=== PATIENT | female | born 1985 | race Caucasian/White ===

== ENCOUNTER 2017-02-15 08:54 | Emergency (ER) | payer OTHER ==
[2017-02-15 09:23] VITALS: BP 144/77
[2017-02-15 10:22] LABS: CHLORIDE,CL 105 mmol/L (98-107); SODIUM,NA 140 mmol/L (136-145)
--- NOTE | 2017-02-17 10:03 | ER ---
Date of Service: 02/15/2017 SUBJECTIVE: Gala presents to emergency room with numerous complaints. The patient states that she is experiencing nausea, states that she feels fatigued and weak, states that she often has a mild headache. She states that she is also experiencing severe fatigue. The patient is currently taking methylphenidate 40 mg daily, Prozac 40 mg daily, Klonopin 0.5 mg p.o. b.i.d. p.r.n. and omeprazole 40 mg daily. Her Prozac was increased from 20 mg daily to 40 mg daily as she was seeing some improvement on the Prozac. She previously has been on numerous medications including Lexapro but has also been on fluoxetine, duloxetine, Abilify, Wellbutrin, Latuda, and BuSpar over the past 6 months. She states that she is under the care of Jesse Kennedy who is a psychiatrist at [facility] in [place]. The patient states that she stopped taking the medications for various reasons including increased fatigue, agitation, and tremor and states that she is experiencing severe depression because she has not tolerated any of her antidepressants other than the Prozac that she is on at this time. The patient states that she has not been experiencing any fever or chills or other worrisome signs or symptoms. PAST MEDICAL HISTORY: 1. Depression. 2. Anxiety. 3. GERD. MEDICATIONS: 1. Methylphenidate 40 mg daily. 2. Prozac 40 mg daily. 3. Klonopin 0.5 mg p.o. b.i.d. p.r.n. 4. Omeprazole 40 mg daily. ALLERGIES: NKDA. REVIEW OF SYSTEMS: Please see history of present illness. Denies any chest pain or shortness of breath. Again, complains of nausea, fatigue, weakness, headache. PHYSICAL EXAMINATION: General: This is a 32-year-old female, in no acute distress. Vital Signs: Blood pressure is 144/77, pulse rate is 83, temperature is 36.3, respiratory rate 16. Skin: Warm, pink, and dry. HEENT. Head is normocephalic, atraumatic. Mouth, oral mucosa is moist. Lungs: Clear to auscultation. Heart: Regular rate and rhythm. Abdomen: Soft, nontender. There is no hepatosplenomegaly or masses noted. Extremities: Without edema. Neurologic: She is alert and oriented, answers all questions appropriately. Psychiatric: Her affect is extremely flat. She denies suicidal or homicidal ideation, but she appears to be quite upset and resistive to answering any questions. ASSESSMENT: Depression. PLAN: The patient was advised to stay on the Prozac as she is tolerating this medication better than the other medications she has tried. She was advised to follow up with her psychiatrist as soon as possible. I did advise her that it is important to take the medications as prescribed and not stop them right away. Often patients will experience some mild nausea or GI upset when taking SSRIs and SNRIs that resolve spontaneously. Also advised her to get out of the house as much as possible. Advised her to do things outside of the home to help with her anxiety and depression. Again, she denies suicidal or homicidal ideation. MWK: 02/16/2017 20:19:29 MODL: 02/16/2017 23:45:15 /[id number]
== END 2017-02-15 11:15 | disposition home or self-care (01) ==
LOC: VM.ED 08:54
DX: F32.9 Major depressive disorder, single episode, unspecified (principal); F41.9 Anxiety disorder, unspecified; K21.9 Gastro-esophageal reflux disease without esophagitis; Z79.899 Other long term (current) drug therapy
CPT/HCPCS: 36415; 80053; 84443; 85025; 99284

== ENCOUNTER 2017-06-26 06:57 | Day surgery (SDC) | payer OTHER ==
[2017-06-26] MEDS ORDERED: Lactated Ringers 1,000 ML IV SCH (07:00)
[2017-06-26] MEDS ORDERED: Propofol 200 MG/20 ML SDV ONE (08:53)
[2017-06-26 09:44] VITALS: BP 116/74
--- NOTE | 2017-06-26 14:13 | OR ---
PREOPERATIVE DIAGNOSIS: Resistant gastroesophageal reflux disease with occasional dysphagia. The patient has been on omeprazole for a number of months, just recently switched to Protonix and Carafate without any improvement yet. POSTOPERATIVE DIAGNOSES: 1. Some minimal gastritis noted. Cold biopsies taken from the antrum for Helicobacter pylori and path. 2. Mild bile reflux noted. PROCEDURE: Esophagogastroduodenoscopy with cold biopsy x1 site. ANESTHESIA: Monitored anesthesia care. DESCRIPTION OF PROCEDURE: Gala is a 32-year-old female who was brought to the endoscope suite after discussion of risks and benefits (including but not limited to reaction to medication, bleeding, infection, aspiration, perforation). Informed consent was obtained for monitored anesthesia care and esophagogastroduodenoscopy along with possible biopsy and/or dilatation. Pre-procedure exam including oral cavity was unremarkable. IV, oxygen, and monitors were placed. The patient was placed in the left lateral position and sedation was administered. A bite block was placed gently and scope lightly lubricated and passed through the bite block and over the tongue. Hypopharynx and vocal cords were visualized and unremarkable. Scope was passed through the cricopharynx and into the esophagus. The scope was then passed through the distal esophagus and the GE junction was visualized and photographed. The GE junction was unremarkable. Vocal cords were visualized. The scope was advanced into the stomach and gastric persaud was suctioned. Pylorus was identified and intubated and then the scope was advanced to the third portion of the duodenum. The second and third portions of the duodenum were unremarkable. The duodenal bulb was visualized and unremarkable. The scope was brought back into the stomach. The pylorus and the antrum did reveal some minimal gastritis. Cold biopsy x2 bites taken from the antrum to test for H. pylori as well as path. The scope was then retroflexed to visualize the angularis, fundus, body, and cardia. These again were remarkable for some minimal gastritis. The stomach was desufflated of air and then the scope was slowly withdrawn, and the esophagus was closely visualized during withdrawal all the way into the posterior pharynx. In the upper esophagus there was an area of heterotopic type mucosa. Cold biopsy x2 bites was taken of this area and sent for path. The patient tolerated the procedure well and went to recovery in stable condition. The patient was monitored until at baseline status. Findings and discharge instructions were reviewed and the patient was discharged in good condition. COMPLICATIONS: None. ESTIMATED BLOOD LOSS: About 1 mL. RECOMMENDATIONS/FOLLOWUP: Await results of the path report. I did stress the importance of lifestyle modifications and handout given to the patient on this. This includes smoking cessation and avoidance of late-night meals. She is already avoiding NSAIDs. If symptoms still not improving, she can consider doing twice daily PPI dosing. If still not improved, then may need to consider bile reflux as potential cause. I would like to kindly thank Mireya Medina for this referral. DMB: 06/26/2017 09:22:10 MODL: 06/26/2017 13:58:27 /[id number]
== END 2017-06-26 10:30 | disposition home or self-care (01) ==
LOC: VM.SDS 06:57
PROVIDERS: ATTEND Family Medicine
DX: K29.50 Unspecified chronic gastritis without bleeding (principal); K21.0 Gastro-esophageal reflux disease with esophagitis; F41.9 Anxiety disorder, unspecified; F32.9 Major depressive disorder, single episode, unspecified; F31.81 Bipolar II disorder; Z79.899 Other long term (current) drug therapy; Z91.09 Other allergy status, other than to drugs and biological substances; Z90.49 Acquired absence of other specified parts of digestive tract; Z98.890 Other specified postprocedural states; F17.210 Nicotine dependence, cigarettes, uncomplicated
CPT/HCPCS: 43239; 81025; J2704; J7120